=== PATIENT | female | born 1980 | race Caucasian/White ===

== ENCOUNTER → 2016-09-30 | Outpatient (CLI) | payer BC ==
[~2016-09-30] MED LIST: BCPILLS PO; CHLO0.12 MT; LAMO200T38 PO; LRS10 PO; NORE1TAB32; PANT40TA PO; PRENTAB26 PO; SERT50TA PO
== END | disposition home or self-care (01) ==
LOC: C.PAPS 16:31
PROVIDERS: ATTEND Obstetrics & Gynecology
DX: Z01.419 Encounter for gynecological examination (general) (routine) without abnormal findings (principal)

== ENCOUNTER 2016-11-06 20:03 | Emergency (ER) | payer BC ==
[~2016-11-06] VITALS: Ht 167.6 cm; Wt 89.3 kg
[~2016-11-06 20:03] MED LIST changes: -BCPILLS PO; -CHLO0.12 MT; -SERT50TA PO
[2016-11-06 20:09] VITALS: TEMP 36.7; Ht 167.6 cm; Wt 89.3 kg
[2016-11-06] MEDS ORDERED: ONDANSETRON INJ 2 MG/ML 2 ML VIAL IV STA (20:24)
[2016-11-06] MEDS ORDERED: SODIUM CHLORIDE 0.9% 1000ML 1,000 ML IV STA (20:24)
[2016-11-06] MEDS ORDERED: OPTIRAY 320 IV PRN (20:30)
--- NOTE | 2016-11-06 20:34 | EMERGENCY ROOM VISIT NOTE ---
History Report prepared by Prashant: Efrain Cardenas Under the Supervision of: Dr. Mayito Simpson D.O. First contact with patient: 20:13 Chief Complaint: HEAD PAIN Stated Complaint: SEVERE HEADAHE NAUSA NECK PAIN History of Present Illness The patient is a 35 year old female who presents to the Emergency Room with complaints of persistent headaches that she has been experiencing for the past 12 days. The patient states that she has a history of Temporomandibular joint dysfunction and had surgery in 1999. 12 days ago the patient was eating and felt the right side of her jaw dislocate. She has been experiencing pain in the right side of her head since this incident. She has been going to physical therapy, with no improvement. The patient notes that she has had a significant headache in the right side of her head which became unbearable today. She has had a headache at some point everyday over the past 12 days. She can no longer take Ibuprofen due to a stomach ulcer and notes that Tylenol is not touching her pain. The patient has a history of Anxiety and takes Zoloft daily. Source of History: patient Onset: 12 days Position: head Quality: other (Headache) Timing: other (Persistent) Associated Symptoms: + headache Review of Systems See HPI for pertinent positives & negatives. A total of 10 systems reviewed and were otherwise negative. Past Medical & Surgical Medical Problems: (1) TMJ (temporomandibular joint syndrome) Family History Cancer Diabetes mellitus Hypertension Kidney disease Social History Smoking Status: Never Smoker Drug Use: none Marital Status: Housing Status: lives with family Occupation Status: employed Current/Historical Medications Scheduled Baclofen (Baclofen), 10 MG PO BID Control Pills ( Control Pills), 1 TAB PO DAILY Lamotrigine (Lamictal), 200 MG PO HS Pantoprazole (Protonix), 40 MG PO DAILY Sertraline (Zoloft), 100 MG PO DAILY Allergies Coded Allergies: Sulfa Drugs (Verified Allergy, Intermediate, Rash, 09/30/16) Physical Exam Vital Signs Date Time Temp Pulse Resp B/P Pulse Ox O2 Delivery O2 Flow Rate FiO2 11/06/16 23:00 65 20 153/93 98 11/06/16 21:40 74 14 153/93 95 Room Air 11/06/16 20:09 36.7 65 18 161/102 97 Room Air Physical Exam GENERAL: Patient is awake, alert, and in no acute distress. Patient is resting comfortably and showing no signs of anxiety EYES: The conjunctivae are clear. The pupils are round and reactive. EARS, NOSE, MOUTH AND THROAT: The nose is without any evidence of any deformity. Mucous membranes are moist tongue is midline. There is tenderness over the carotid sheath, no Bruit noted to auscultation over the left or right carotid. ROM intact. NECK: The neck is nontender and supple. RESPIRATORY: Normal respiratory effort is noted there is no evidence of wheezing rhonchi or rales CARDIOVASCULAR: Tachycardic rate and rhythm noted there no murmurs rubs or gallops normal S1 normal S2 GASTROINTESTINAL: The abdomen is soft. Bowel sounds are present in all quadrants. Abdomen is nontender BACK: No midline tenderness or or step-off noted range of motion in flexion extension as well as rotation no signs of muscle spasm noted MUSCULOSKELETAL/EXTREMITIES: There is no evidence of gross deformity full range of motion is noted in the hips and shoulders SKIN: There is no obvious evidence of any rash. There are no petechiae, pallor or cyanosis noted. NEUROLOGIC: Patient is awake alert and oriented x3 strength is symmetric patellar reflexes are 2+ bilaterally Medical Decision & Procedures ER Provider Diagnostic Interpretation: Radiology results as stated below per my review and radiologist interpretation: CT ANGIOGRAM OF THE BRAIN COMBO; CT ANGIOGRAM OF THE NECK CLINICAL HISTORY: Headache. COMPARISON STUDY: No priors. TECHNIQUE: Unenhanced axial CT scan of the brain is performed. Subsequently, following the IV administration of 116 of Optiray 320, CT angiogram of the head and neck was performed from the aortic arch to the vertex. Images are reviewed in the axial, sagittal, and coronal planes. 3-D MIPS images are created and assessed. IV contrast was administered without complication. All measurements were calculated based on NASCET criteria. CT DOSE: 1092.14 mGy.cm FINDINGS: Brain parenchyma: The brain parenchyma is normal in appearance. There is no hemorrhage, mass effect, or evidence of acute territorial ischemia by CT criteria. There is no evidence of enhancing mass lesion on the angiogram phase images. The ventricles, sulci, and cisterns are normal in configuration. Thoracic aorta: Visualized portions of the thoracic aorta are normal in caliber. The aortic arch demonstrates standard 3-vessel anatomy. Right carotid arterial system: The right common carotid artery is widely patent, as are the right internal and external carotid arteries. Left carotid arterial system: The left common carotid artery is widely patent, as are the left internal and external carotid arteries. Vertebral arteries: Widely patent bilaterally and codominant. Subclavian arteries: Widely patent bilaterally. Intracranial vasculature: The point [place] of [place] is developmentally complete. The internal carotid arteries at the skull base are widely patent bilaterally, as are the anterior and middle cerebral arteries. The vertebrobasilar system and posterior cervical arteries are widely patent. The vertebral arteries are codominant. No aneurysm, high-grade stenosis, or focal vessel cut off is identified. Jugular veins: Widely patent bilaterally. Dural sinuses: Lung apices: Partially visualized upper lobe lung parenchyma appears clear. Soft tissues: The visualized pharyngeal soft tissues are normal in appearance noting angiographic phase technique. The oropharyngeal airway appears widely patent. The salivary and thyroid glands are normal in appearance. No cervical lymphadenopathy is seen. Skeletal structures: The calvarium appears intact. The cervical spine is within normal limits. Sinuses and mastoids: The paranasal sinuses are clear. The mastoid air cells are well pneumatized. IMPRESSION: 1. No acute intracranial abnormality. 2. Unremarkable CT angiogram of the brain. 3. Unremarkable CT angiogram of the neck. Electronically signed by: Sumeet Tolentino M.D. 11/06/2016 10:10 PM Dictated Date/Time: 11/06/2016 10:[address] ANGIOGRAM OF THE BRAIN COMBO; CT ANGIOGRAM OF THE NECK CLINICAL HISTORY: Headache. COMPARISON STUDY: No priors. TECHNIQUE: Unenhanced axial CT scan of the brain is performed. Subsequently, following the IV administration of 116 of Optiray 320, CT angiogram of the head and neck was performed from the aortic arch to the vertex. Images are reviewed in the axial, sagittal, and coronal planes. 3-D MIPS images are created and assessed. IV contrast was administered without complication. All measurements were calculated based on NASCET criteria. CT DOSE: 1092.14 mGy.cm FINDINGS: Brain parenchyma: The brain parenchyma is normal in appearance. There is no hemorrhage, mass effect, or evidence of acute territorial ischemia by CT criteria. There is no evidence of enhancing mass lesion on the angiogram phase images. The ventricles, sulci, and cisterns are normal in configuration. Thoracic aorta: Visualized portions of the thoracic aorta are normal in caliber. The aortic arch demonstrates standard 3-vessel anatomy. Right carotid arterial system: The right common carotid artery is widely patent, as are the right internal and external carotid arteries. Left carotid arterial system: The left common carotid artery is widely patent, as are the left internal and external carotid arteries. Vertebral arteries: Widely patent bilaterally and codominant. Subclavian arteries: Widely patent bilaterally. Intracranial vasculature: The point lay [place] of [place] is developmentally complete. The internal carotid arteries at the skull base are widely patent bilaterally, as are the anterior and middle cerebral arteries. The vertebrobasilar system and posterior cervical arteries are widely patent. The vertebral arteries are codominant. No aneurysm, high-grade stenosis, or focal vessel cut off is identified. Jugular veins: Widely patent bilaterally. Dural sinuses: Lung apices: Partially visualized upper lobe lung parenchyma appears clear. Soft tissues: The visualized pharyngeal soft tissues are normal in appearance noting angiographic phase technique. The oropharyngeal airway appears widely patent. The salivary and thyroid glands are normal in appearance. No cervical lymphadenopathy is seen. Skeletal structures: The calvarium appears intact. The cervical spine is within normal limits. Sinuses and mastoids: The paranasal sinuses are clear. The mastoid air cells are well pneumatized. IMPRESSION: 1. No acute intracranial abnormality. 2. Unremarkable CT angiogram of the brain. 3. Unremarkable CT angiogram of the neck. Electronically signed by: Sumeet Tolentino M.D. 11/06/2016 10:10 PM Dictated Date/Time: 11/06/2016 10:03 PM Laboratory Results 11/06/16 20:38 Red Blood Count 4.69, Mean Corpuscular Volume 92.8, Mean Corpuscular Hemoglobin 30.9, Mean Corpuscular Hemoglobin Concent 33.3, Mean Platelet Volume 11.3, Neutrophils (%) (Auto) 51.1, Lymphocytes (%) (Auto) 39.4, Monocytes (%) (Auto) 7.5, Eosinophils (%) (Auto) 1.6, Basophils (%) (Auto) 0.3, Neutrophils # (Auto) 3.52, Lymphocytes # (Auto) 2.72, Monocytes # (Auto) 0.52, Eosinophils # (Auto) 0.11, Basophils # (Auto) 0.02 11/06/16 20:38 Test 11/06/16 20:38 11/06/16 20:52 White Blood Count 6.90 K/uL (4.8-10.8) Red Blood Count 4.69 M/uL (4.2-5.4) Hemoglobin 14.5 g/dL (12.0-16.0) Hematocrit 43.5 % (37-47) Mean Corpuscular Volume 92.8 fL (80-100) Mean Corpuscular Hemoglobin 30.9 pg (25-34) Mean Corpuscular Hemoglobin Concent 33.3 g/dl (32-36) Platelet Count 283 K/uL (130-400) Mean Platelet Volume 11.3 fL (7.4-10.4) Neutrophils (%) (Auto) 51.1 % Lymphocytes (%) (Auto) 39.4 % Monocytes (%) (Auto) 7.5 % Eosinophils (%) (Auto) 1.6 % Basophils (%) (Auto) 0.3 % Neutrophils # (Auto) 3.52 K/uL (1.4-6.5) Lymphocytes # (Auto) 2.72 K/uL (1.2-3.4) Monocytes # (Auto) 0.52 K/uL (0.11-0.59) Eosinophils # (Auto) 0.11 K/uL (0-0.5) Basophils # (Auto) 0.02 K/uL (0-0.2) RDW Standard Deviation 43.0 fL (36.4-46.3) RDW Coefficient of Variation 12.8 % (11.5-14.5) Immature Granulocyte % (Auto) 0.1 % Immature Granulocyte # (Auto) 0.01 K/uL (0.00-0.02) Prothrombin Time 11.2 SECONDS (9.0-12.0) Prothromb Time International Ratio 1.0 (0.9-1.1) Activated Partial Thromboplast Time 27.3 SECONDS (21.0-31.0) Partial Thromboplastin Ratio 1.1 Est Creatinine Clear Calc Drug Dose 91.2 ml/min Estimated GFR () 88.7 Estimated GFR (Non- 76.5 BUN/Creatinine Ratio 12.4 (10-20) Calcium Level 8.8 mg/dl (8.5-10.1) Total Bilirubin 0.4 mg/dl (0.2-1) Direct Bilirubin < 0.1 mg/dl (0-0.2) Aspartate Amino Transf (AST/SGOT) 13 U/L (15-37) Alanine Aminotransferase (ALT/SGPT) 24 U/L (12-78) Alkaline Phosphatase 75 U/L (45-117) Total Protein 7.0 gm/dl (6.4-8.2) Albumin 3.7 gm/dl (3.4-5.0) Lipase 306 U/L (73-393) Human Chorionic Gonadotropin, Qual NEG (NEG) Bedside Hemoglobin 12.9 g/dl (12.0-16.0) Bedside Hematocrit 38 % (37-47) Bedside Sodium 140 mEq/L (135-144) Bedside Potassium 3.7 mEq/L (3.3-5.0) Bedside Chloride 102 mEq/L (101-112) Bedside Total CO2 26 mEq/l (24-31) Anion Gap 17.0 mmol/L (16-25) Bedside Blood Urea Nitrogen 11 mg/dl (7-18) Bedside Creatinine 0.9 mg/dl (0.6-1.3) Bedside Glucose (other) 97 mg/dl (70-99) Bedside Ionized Calcium (Alexandra) 1.15 mmol/l (1.12-1.32) Laboratory results per my review. Medications Administered Medications (Trade) Dose Ordered Sig/Keiry Route Start Time Stop Time Status Last Admin Dose Admin Sodium Chloride (Nss 1000ml) 1,000 ml @ 999 mls/hr Q1H1M STAT IV 11/06/16 20:24 11/06/16 21:24 DC 11/06/16 20:45 999 MLS/HR Ondansetron HCl (Zofran Inj) 4 mg NOW STAT IV 11/06/16 20:24 11/06/16 20:26 DC 11/06/16 20:45 4 MG Morphine Sulfate 4 mg 4 mg Q15M PRN IV 11/06/16 21:30 11/06/16 23:43 DC 11/06/16 21:34 4 MG Promethazine HCl/ Sodium Chloride (Phenergan Inj/ Nss 50ml) 50.5 ml @ 204 mls/hr NOW STAT IV 11/06/16 21:25 11/06/16 21:39 DC 11/06/16 21:34 204 MLS/HR Ondansetron HCl (ZOFRAN ODT 4MG Home Pack) 1 homepack UD ONCE PO 11/06/16 22:45 11/06/16 22:46 DC 11/06/16 22:50 1 HOMEPACK Oxycodone HCl (Roxicodone Immediate Rel 5MG Home Pack) 1 homepack UD ONCE PO 11/06/16 22:45 11/06/16 22:46 DC 11/06/16 22:49 1 HOMEPACK ED Course 2018: The patient was evaluated in room A2. A complete history and physical examination were performed. 2023: Ordered Zofran 4 mg IV, Sodium Chloride 1000 mL @ 999 mL/hr IV. 2124: Ordered Promethazine HCl 50.5 mL @ 204 mL/hr IV. 2129: Ordered Morphine Sulfate 4 mg IV. 2244: Ordered Oxycodone HCl 1 hompack PO, Zofran 1 homepack PO. 2248: Upon reevaluation, the patient is resting in bed. I discussed the results and treatment plan with her. She verbalized agreement of the treatment plan. The patient was discharged home. Medical Decision The patient's history was concerning for headache. Differential diagnosis: Etiologies such as migraine headache, meningitis, sinusitis, CO exposure, ICH, SAH, infection, tumor, headache, sinus thrombosis, arterial dissection, as well as others were entertained. The patient is a 35-year-old female who presented to the emergency department for an evaluation of right-sided headache as well as pain going into her right neck. The patient did not have any meningismus or focal neurologic deficits. The patient was recently seen by a chiropractor and had some pain over the right carotid. I discussed the patient's laboratory and radiographic studies with her. She was not found have any acute abnormality on CT angiography of the head or neck. The patient was treated with IV fluids IV pain medicine and IV antiemetics. On subsequent reevaluation she was feeling much better. The patient was encouraged to rest and avoid any strenuous activity. She was also encouraged to continue all medications as prescribed. He was also encouraged to follow-up with her primary care physician as soon as possible but return to the emergency department immediately if symptoms change worsen or if the need arises. Impression Primary Impression: Headache Scribe Attestation The scribe's documentation has been prepared under my direction and personally reviewed by me in its entirety. I confirm that the note above accurately reflects all work, treatment, procedures, and medical decision making performed by me. Departure Information Dispostion Home / Self-Care Referrals Samuel Mas D.O.Int.Med. (PCP) Forms HOME CARE DOCUMENTATION FORM, IMPORTANT VISIT INFORMATION, WORK / SCHOOL INSTRUCTIONS Patient Instructions My [facility] Additional Instructions Rest and avoid any strenuous activities. Continue all medications as prescribed. Call your family to schedule a follow-up appointment. Return to the emergency department if symptoms change worsen or the need arises. Problem Qualifiers Primary Impression: Headache Headache type: unspecified Headache chronicity pattern: acute headache Intractability: not intractable Qualified Codes: R51 - Headache
[2016-11-06 20:50] LABS: BASO % 0.3 %; BASO ABS # 0.02 K/uL (0-0.2); COMPLETE YES; EOS % 1.6 %; HEMATOCRIT 43.5 % (37-47); IG% 0.1 %; LYMPH % 39.4 %; LYMPH ABS # 2.72 K/uL (1.2-3.4); MEAN CELL VOLUME 92.8 fL (80-100); MEAN CORPUSCULAR HEMOGLOBIN 30.9 pg (25-34); MEAN CORPUSCULAR HGB CONC 33.3 g/dl (32-36); MEAN PLATELET VOLUME 11.3 fL (7.4-10.4); MONO % 7.5 %; NEUT % 51.1 %; PLATELET COUNT 283 K/uL (130-400); RED BLOOD COUNT 4.69 M/uL (4.2-5.4)
[2016-11-06 21:00] LABS: PARTIAL THROMBOPLASTIN RATIO 1.1; PROTHROMBIN TIME (PATIENT) 11.2 SECONDS (9.0-12.0)
[2016-11-06 21:05] LABS: ISTAT CREATININE 0.9 mg/dl (0.6-1.3); ISTAT HEMOGLOBIN 12.9 g/dl (12.0-16.0); ISTAT IONIZED CALCIUM 1.15 mmol/l (1.12-1.32)
[2016-11-06 21:07] LABS: ALT/SGPT 24 U/L (12-78); AST/SGOT 13 U/L (15-37); BLOOD UREA NITROGEN 12 mg/dl (7-18); BUN/CREATININE RATIO 12.4 (10-20); CALCIUM 8.8 mg/dl (8.5-10.1); CARBON DIOXIDE 31 mmol/L (21-32); CHLORIDE 104 mmol/L (98-107); CREATININE 0.95 mg/dl (0.60-1.20); GLUCOSE 92 mg/dl (70-99); POTASSIUM 3.9 mmol/L (3.5-5.1); SODIUM 141 mmol/L (136-145)
[2016-11-06 21:09] LABS: ALKALINE PHOSPHATASE 75 U/L (45-117)
[2016-11-06] MEDS ORDERED: BCPILLS PO (21:19)
[2016-11-06 21:23] LABS: PREG INTERNAL NEGATIVE QC NEG CLEAR BACKGROUND; PREG INTERNAL POSITIVE QC POS CONTROL LINE
[2016-11-06] MEDS ORDERED: PROMETHAZINE HCL INJ 12.5 MG in SODIUM CHLORIDE 0.9% 50ML 50 ML IV STA (21:25)
[2016-11-06] MEDS ORDERED: MoRPHine SULFATE 4 MG/ML 1 ML CARP\\VIAL IV PRN (21:30)
[2016-11-06] MEDS ORDERED: SERT50TA PO (21:47)
--- NOTE | 2016-11-06 22:11 | DIAGNOSTIC IMAGING REPORT ---
CT ANGIOGRAM OF THE BRAIN COMBO; CT ANGIOGRAM OF THE NECK CLINICAL HISTORY: Headache. COMPARISON STUDY: No priors. TECHNIQUE: Unenhanced axial CT scan of the brain is performed. Subsequently, following the IV administration of 116 of Optiray 320, CT angiogram of the head and neck was performed from the aortic arch to the vertex. Images are reviewed in the axial, sagittal, and coronal planes. 3-D MIPS images are created and assessed. IV contrast was administered without complication. All measurements were calculated based on NASCET criteria. CT DOSE: 1092.14 mGy.cm FINDINGS: Brain parenchyma: The brain parenchyma is normal in appearance. There is no hemorrhage, mass effect, or evidence of acute territorial ischemia by CT criteria. There is no evidence of enhancing mass lesion on the angiogram phase images. The ventricles, sulci, and cisterns are normal in configuration. Thoracic aorta: Visualized portions of the thoracic aorta are normal in caliber. The aortic arch demonstrates standard 3-vessel anatomy. Right carotid arterial system: The right common carotid artery is widely patent, as are the right internal and external carotid arteries. Left carotid arterial system: The left common carotid artery is widely patent, as are the left internal and external carotid arteries. Vertebral arteries: Widely patent bilaterally and codominant. Subclavian arteries: Widely patent bilaterally. Intracranial vasculature: The [place] of [place] is developmentally complete. The internal carotid arteries at the skull base are widely patent bilaterally, as are the anterior and middle cerebral arteries. The vertebrobasilar system and posterior cervical arteries are widely patent. The vertebral arteries are codominant. No aneurysm, high-grade stenosis, or focal vessel cut off is identified. Jugular veins: Widely patent bilaterally. Dural sinuses: Lung apices: Partially visualized upper lobe lung parenchyma appears clear. Soft tissues: The visualized pharyngeal soft tissues are normal in appearance noting angiographic phase technique. The oropharyngeal airway appears widely patent. The salivary and thyroid glands are normal in appearance. No cervical lymphadenopathy is seen. Skeletal structures: The calvarium appears intact. The cervical spine is within normal limits. Sinuses and mastoids: The paranasal sinuses are clear. The mastoid air cells are well pneumatized. IMPRESSION: 1. No acute intracranial abnormality. 2. Unremarkable CT angiogram of the brain. 3. Unremarkable CT angiogram of the neck. Electronically signed by: Sumeet Tolentino M.D. 11/06/2016 10:10 PM Dictated Date/Time: 11/06/2016 10:03 PM
[2016-11-06] MEDS ORDERED: ONDANSETRON HOME PACK 4MG OD TAB PO ONE (22:45)
[2016-11-06] MEDS ORDERED: OXYCODONE IR HOME PACK PO ONE (22:45)
[2016-11-06 23:00] VITALS: BP 153/93; PULSE 65; O2SAT 98
== END 2016-11-06 23:00 | disposition home or self-care (01) ==
LOC: C.EDB 20:05 → C.EDA 23:00
DX: R51 Headache (principal); F41.9 Anxiety disorder, unspecified; M26.629 Arthralgia of temporomandibular joint, unspecified side; Z80.9 Family history of malignant neoplasm, unspecified; Z83.3 Family history of diabetes mellitus; Z82.49 Family history of ischemic heart disease and other diseases of the circulatory system; Z84.1 Family history of disorders of kidney and ureter; Z79.3 Long term (current) use of hormonal contraceptives; Z79.899 Other long term (current) drug therapy